=== PATIENT | male | born 1970 | race Hispanic/Latino ===

== ENCOUNTER 2017-07-17 18:51 | Emergency (ER) | payer MEDICAID ==
[2017-07-17 19:56] LABS: APPEARANCE,URINE Clear (CLEAR); BILIRUBIN,URINE Negative (NEGATIVE); COLOR,URINE Yellow (YELLOW); GLUCOSE, URINE (UA) >=1000 mg/dL (NEGATIVE); KETONES,URINE Negative (NEGATIVE); LEUKOCYTE ESTERASE ,URINE Negative (NEGATIVE); NITRATE,URINE Negative (NEGATIVE); OCCULT BLOOD,URINE Negative (NEGATIVE); PROTEIN,URINE Negative (NEGATIVE)
[2017-07-17 19:57] LABS: RAPID GROUP A STREP NEGATIVE (NEGATIVE)
[2017-07-17 20:26] LABS: AMORPHOUS SEDIMENT,UR Rare /LPF (None Seen); BACTERIA,URINE Rare /HPF (None Seen); RBC,URINE 0-1 /HPF (0-1); SQUAMOUS EPITHELIAL CELL,UR Rare /LPF (0-2); WBC,URINE 0-1 /HPF (0-1)
== END 2017-07-17 21:41 | disposition left against medical advice (07) ==
LOC: EDH 18:51
DX: J06.9 Acute upper respiratory infection, unspecified (principal); I10 Essential (primary) hypertension; E11.9 Type 2 diabetes mellitus without complications; F31.9 Bipolar disorder, unspecified; G47.30 Sleep apnea, unspecified; Z72.0 Tobacco use
CPT/HCPCS: 81001; 87804; 87880

== ENCOUNTER 2022-02-16 06:01 | Observation (INO) | payer MEDICAID ==
[~2022-02-16] VITALS: Ht 157.5 cm; Wt 119.3 kg
[2022-02-16] MEDS ORDERED: ACETAMINOPHEN 500 MG TABLET ONE (06:18)
[2022-02-16] MEDS ORDERED: ALBUTEROL 0.083% 2.5 MG/3 ML INH IH ONE (06:30)
[2022-02-16 06:49] LABS: BASOPHILS % (AUTO) 0.6 % (0.0-5.0); EOSINOPHILS % (AUTO) 0.3 % (0.0-8.0); HEMATOCRIT 48.2 % (42-54); LYMPHOCYTES % (AUTO) 7.3 % (21.0-51.0); MEAN CORPUSCULAR HEMOGLOBIN 33.5 pg (27.0-33.0); MEAN CORPUSCULAR HGB CONC 34.9 g/dL (32.0-36.0); MEAN CORPUSCULAR VOLUME 96.2 fL (79-99); MONOCYTES % (AUTO) 11.3 % (3.0-13.0); NEUTROPHILS % (AUTO) 78.6 % (40.0-77.0); PLATELET COUNT (AUTO) 161 K/uL (130-400); RED BLOOD CELL COUNT(AUTO) 5.01 MIL/uL (4.50-6.20); RED CELL DISTRIBUTION WIDTH 12.9 % (11.0-15.5)
[2022-02-16 07:09] LABS: ALBUMIN 3.4 g/dL (3.5-5.0); CREATININE 1.3 mg/dL (0.5-1.5); TOTAL PROTEIN, SERUM 7.7 g/dL (6.0-8.3)
[2022-02-16] MEDS ORDERED: AZITHROMYCIN 250 MG TABLET PO ONE (07:30)
[2022-02-16] MEDS ORDERED: CEFTRIAXONE 1G VIAL IVP ONE (07:30)
[2022-02-16] MEDS ORDERED: DEXAMETHASONE SOD PHOSPHATE 4 MG/ML 1ML VIAL IVP ONE (07:30)
[2022-02-16] MEDS ORDERED: ACETAMINOPHEN 325 MG TAB PO PRN (08:00)
[2022-02-16] MEDS ORDERED: ASPIRIN 325MG TAB PO SCH (08:00)
[2022-02-16] MEDS ORDERED: DIAZEPAM 2 MG TAB PO PRN (08:00)
[2022-02-16] MEDS ORDERED: CLONIDINE HCL 0.1 MG TABLET PO PRN (08:00)
[2022-02-16] MEDS ORDERED: TEMAZEPAM 15 MG CAPSULE PO PRN (08:00)
[2022-02-16] MEDS ORDERED: SOLU-MEDROL 125MG VIAL IVP ONE (08:00)
[2022-02-16] MEDS ORDERED: LACTULOSE 20 GM/30 ML UDCUP PO PRN (08:00)
[2022-02-16] MEDS: CHLORHEXIDINE GLUCONATE 473 ML MOUTHWASH MM SCH ×3 (08:00→20:50)
[2022-02-16] MEDS ORDERED: ACETAMINOPHEN 650 MG SUPPOSITORY RC PRN (08:00)
[2022-02-16] MEDS: ARTIFICAL TEARS SOL 15 ML OU SCH ×3 (08:00→20:50)
[2022-02-16] MEDS ORDERED: DOCUSATE SODIUM 100 MG CAP PO PRN (08:00)
[2022-02-16] MEDS ORDERED: ERGOCALCIFEROL (VITAMIN D2) 50,000 UNIT CAPSULE PO SCH (08:00)
[2022-02-16] MEDS: SOLU-MEDROL 125MG VIAL IVP SCH ×2 (08:00→17:32)
[2022-02-16] MEDS ORDERED: ONDANSETRON 4MG INJ IVP PRN (08:00)
[2022-02-16] MEDS ORDERED: ALBUTEROL INHALER 90MCG/INH IH PRN (08:00)
[2022-02-16] MEDS ORDERED: GUAIFENESIN-CODEINE 5 ML SYRUP PO PRN (08:00)
[2022-02-16 08:08] LABS: B-TYPE NATRIURETIC PEPTIDE 6 pg/mL (0-100)
[2022-02-16 08:15] LABS: ABG HCO3 23.4 mmol/L (21.0-28.0); ABG OXYGEN SATURATION 92.4 % (95.0-99.0); ABG PCO2 38 mmHg (35-48)
[2022-02-16] MEDS: ASPIRIN 81MG CHEW TAB PO SCH (09:00)
[2022-02-16] MEDS: LEVOFLOXACIN 500 MG/D5W 100 ML IV SCH (09:29)
[2022-02-16] MEDS: ACETYLCYSTEINE 600 MG CAPSULE PO SCH ×2 (09:46→21:19)
[2022-02-16] MEDS: ASCORBIC ACID 500 MG TAB PO SCH (09:46)
[2022-02-16] MEDS: PANTOPRAZOLE 40 MG TAB DR PO SCH (09:47)
[2022-02-16] MEDS: ZINC SULFATE 220 CAPSULE PO SCH (09:47)
[2022-02-16] MEDS: ENOXAPARIN SODIUM 40 MG/0.4 ML SYRINGE SQ SCH (09:47)
[2022-02-16] MEDS ORDERED: METF-527 PO (09:53)
[2022-02-16] MEDS ORDERED: SEMA1PEN3 SQ (09:53)
[2022-02-16] MEDS: LACTATED RINGERS 1000ML 1,000 ML IV SCH (10:02)
[2022-02-16] MEDS ORDERED: IPRATROPIUM 0.5 MG/2.5 ML INH IH ONE (10:58)
[2022-02-16] MEDS: IPRATROPIUM 0.5 MG/2.5 ML INH IH SCH ×2 (11:05→18:50)
[2022-02-16 12:34] LABS: APPEARANCE,URINE CLEAR (CLEAR); BILIRUBIN,URINE NEGATIVE (NEGATIVE); COLOR,URINE YELLOW (YELLOW); GLUCOSE, URINE (UA) 100 mg/dL (NEGATIVE); KETONES,URINE NEGATIVE (NEGATIVE); LEUKOCYTE ESTERASE ,URINE NEGATIVE (NEGATIVE); NITRATE,URINE NEGATIVE (NEGATIVE); OCCULT BLOOD,URINE NEGATIVE (NEGATIVE); PH,URINE 5.5 (5.0-8.0); PROTEIN,URINE NEGATIVE (NEGATIVE); UROBILINOGEN,URINE 0.2 mg/dL (0.2-1.0)
[2022-02-16 12:39] LABS: BACTERIA,URINE Rare /HPF (None Seen); RBC,URINE 0-1 /HPF (0-1); SQUAMOUS EPITHELIAL CELL,UR Rare /HPF (0-2); WBC,URINE 0-1 /HPF (0-1)
[2022-02-16] MEDS: INSULIN HUMULIN R 100 UNIT/ML 3ML SQ SCH ×3 (13:02→21:18)
[2022-02-16] MEDS ORDERED: PHARMACY COMMUNICATION MISC SCH (15:30)
[2022-02-16 16:17] VITALS: BP 114/78
[2022-02-16 20:47] VITALS: BP 110/68
[2022-02-16 23:56] VITALS: BP 129/76
[2022-02-17] MEDS: IPRATROPIUM 0.5 MG/2.5 ML INH IH SCH ×3 (00:17→11:18)
[2022-02-17] MEDS: SOLU-MEDROL 125MG VIAL IVP SCH ×2 (00:33→08:49)
[2022-02-17] MEDS: CHLORHEXIDINE GLUCONATE 473 ML MOUTHWASH MM SCH ×2 (02:00→08:00)
[2022-02-17] MEDS: ARTIFICAL TEARS SOL 15 ML OU SCH ×2 (02:00→08:00)
[2022-02-17 03:30] VITALS: BP 130/81
[2022-02-17] MEDS: LACTATED RINGERS 1000ML 1,000 ML IV SCH (04:05)
[2022-02-17 04:51] LABS: MEAN CORPUSCULAR HEMOGLOBIN 33.3 pg (27.0-33.0); MEAN CORPUSCULAR HGB CONC 34.2 g/dL (32.0-36.0); MEAN CORPUSCULAR VOLUME 97.2 fL (79-99); RED BLOOD CELL COUNT(AUTO) 4.63 MIL/uL (4.50-6.20); RED CELL DISTRIBUTION WIDTH 13.1 % (11.0-15.5); WHITE BLOOD COUNT (AUTO) 17.5 K/uL (4.8-10.8)
[2022-02-17 05:14] LABS: CREATININE 1.1 mg/dL (0.5-1.5); MAGNESIUM 2.1 mg/dL (1.80-2.40); PHOSPHORUS 3.8 mg/dL (2.5-4.9); POTASSIUM 4.4 mmol/L (3.5-5.1)
[2022-02-17] MEDS: INSULIN HUMULIN R 100 UNIT/ML 3ML SQ SCH ×2 (06:18→11:55)
[2022-02-17 06:57] VITALS: BP 108/79
[2022-02-17] MEDS: PANTOPRAZOLE 40 MG TAB DR PO SCH (08:50)
[2022-02-17] MEDS: ACETYLCYSTEINE 600 MG CAPSULE PO SCH (08:50)
[2022-02-17] MEDS: ZINC SULFATE 220 CAPSULE PO SCH (08:50)
[2022-02-17] MEDS: ASPIRIN 81MG CHEW TAB PO SCH (08:50)
[2022-02-17] MEDS: ASCORBIC ACID 500 MG TAB PO SCH (08:50)
[2022-02-17] MEDS: ENOXAPARIN SODIUM 40 MG/0.4 ML SYRINGE SQ SCH (08:51)
[2022-02-17] MEDS: LEVOFLOXACIN 500 MG/D5W 100 ML IV SCH (08:51)
[2022-02-17] MEDS ORDERED: DEXA6TAB7 PO (11:48)
[2022-02-17] MEDS ORDERED: LEVO-70 PO (11:48)
[2022-02-17] MEDS ORDERED: ALBU8.5H8 IH (11:50)
[2022-02-17 12:00] VITALS: BP 142/60
[2022-02-17] MEDS ORDERED: SOLU-MEDROL 125MG VIAL IVP SCH (16:00)
[2022-02-18] MEDS ORDERED: DEXAMETHASONE 4 MG TAB PO SCH (09:00)
== END 2022-02-17 14:55 | disposition home or self-care (01) ==
LOC: EDH 06:01 → INTOOBSV 06:02 → EDHIP 06:02 → UNDOADMIN 07:40 → 2AH 14:47 → EDHIP 14:47
PROVIDERS: ADMIT Internal Medicine; ATTEND Internal Medicine
DX: U07.1 COVID-19 (principal); J12.82 Pneumonia due to coronavirus disease 2019; I10 Essential (primary) hypertension; J44.1 Chronic obstructive pulmonary disease with (acute) exacerbation; E11.9 Type 2 diabetes mellitus without complications; E78.5 Hyperlipidemia, unspecified; E66.9 Obesity, unspecified; G47.33 Obstructive sleep apnea (adult) (pediatric); F41.9 Anxiety disorder, unspecified; M19.90 Unspecified osteoarthritis, unspecified site; R09.02 Hypoxemia; Z87.891 Personal history of nicotine dependence; Z79.899 Other long term (current) drug therapy; Z98.890 Other specified postprocedural states; Z79.4 Long term (current) use of insulin; Z79.82 Long term (current) use of aspirin; Z79.84 Long term (current) use of oral hypoglycemic drugs; Z68.42 Body mass index [BMI] 45.0-49.9, adult
CPT/HCPCS: 96376 ×2; 96372 ×2; 96361 ×2; 96365; 96375; 82550 ×3; 83874 ×3; 84484 ×4; 80053; 82803; 83880; 85025; 85378; 87071; 87205; 87804 ×2; 82948 ×5; 81001; 36415 ×2; 87635; 71045; 71250; 99291; 93005; 36600; 94640 ×6; 94660; 94664; 96366; 83615; 83735; 84100; 80048; 85027; 94760 ×2; 84145; G0378 ×29; C9803; J7120 ×2; J1956 ×2; J2930 ×4; J0696; J1650 ×2; J1100; J1815 ×5

== ENCOUNTER 2022-06-27 22:51 | Emergency (ER) | payer MEDICAID ==
[~2022-06-27] VITALS: Ht 157.5 cm; Wt 123.4 kg
[~2022-06-27 22:51] MED LIST: ALBU8.5H8 IH; DEXA6TAB7 PO; LEVO-70 PO; METF-527 PO; SEMA1PEN3 SQ
[2022-06-27] MEDS ORDERED: LIDOCAINE HCL-MPF 2% 5ML VIAL ONE ×2 (23:05→23:16)
[2022-06-27] MEDS ORDERED: AMOX1TAB16 PO (23:17)
[2022-06-27] MEDS ORDERED: IBUP-2070 PO (23:17)
[2022-06-27 23:27] VITALS: BP 129/89
[2022-06-27] MEDS ORDERED: KETOROLAC 30MG VIAL (30MG/ML) IM ONE (23:30)
== END 2022-06-27 23:25 | disposition home or self-care (01) ==
LOC: EDH 22:51
DX: K02.9 Dental caries, unspecified (principal); E11.9 Type 2 diabetes mellitus without complications; E78.00 Pure hypercholesterolemia, unspecified; G47.30 Sleep apnea, unspecified; I10 Essential (primary) hypertension; F17.200 Nicotine dependence, unspecified, uncomplicated; Z79.1 Long term (current) use of non-steroidal anti-inflammatories (NSAID); Z79.52 Long term (current) use of systemic steroids
CPT/HCPCS: 99283; J3490 ×2

== ENCOUNTER 2023-04-16 14:55 | Emergency (ER) | payer MEDICAID ==
[~2023-04-16] VITALS: Ht 157.5 cm; Wt 108.9 kg
[~2023-04-16 14:55] MED LIST changes: +AMOX1TAB16 PO; +IBUP-2070 PO
[2023-04-16 15:14] LABS: BASOPHILS % (AUTO) 0.9 % (0.0-5.0); EOSINOPHILS # (AUTO) 0.25 K/uL (0.00-0.70); EOSINOPHILS % (AUTO) 2.4 % (0.0-8.0); HEMATOCRIT 54.2 % (42-54); IMMATURE GRANULOCYTE ABSOLUTE 0.23 K/uL (0-1); LYMPHOCYTES # (AUTO) 2.2 K/uL (1.0-4.8); LYMPHOCYTES % (AUTO) 20.4 % (21.0-51.0); MEAN CORPUSCULAR HEMOGLOBIN 33.5 pg (27.0-33.0); MEAN CORPUSCULAR HGB CONC 33.8 g/dL (32.0-36.0); MEAN CORPUSCULAR VOLUME 99.3 fL (79-99); MONOCYTES # (AUTO) 0.7 K/uL (0.1-1.0); MONOCYTES % (AUTO) 6.8 % (3.0-13.0); NEUTROPHILS # (AUTO) 7.1 K/uL (1.8-7.7); NEUTROPHILS % (AUTO) 67.3 % (40.0-77.0); PLATELET COUNT (AUTO) 213 K/uL (130-400); RED BLOOD CELL COUNT(AUTO) 5.46 MIL/uL (4.50-6.20); RED CELL DISTRIBUTION WIDTH 12.9 % (11.0-15.5); WHITE BLOOD COUNT (AUTO) 10.6 K/uL (4.8-10.8)
[2023-04-16] MEDS ORDERED: 0.9%NACL 1000ML 1,000 ML IV ONE ×2 (15:30→17:30)
[2023-04-16] MEDS ORDERED: ASPIRIN 325MG TAB PO ONE (15:30)
[2023-04-16] MEDS ORDERED: NITROGLYCERIN 0.4 MG SL TAB SL PRN (15:30)
[2023-04-16 15:43] LABS: B-TYPE NATRIURETIC PEPTIDE < 5 pg/mL (0-100)
[2023-04-16 16:07] LABS: PROTHROMBIN TIME 11.6 SEC (9.6-11.6)
[2023-04-16 16:08] LABS: PARTIAL THROMBOPLASTIN TIME 29.3 SEC (26.3-35.5)
[2023-04-16 16:15] LABS: ALBUMIN 3.3 g/dL (3.5-5.0); BILIRUBIN,TOTAL 0.3 mg/dL (0.2-1.0); CREATININE 1.2 mg/dL (0.5-1.5); MAGNESIUM 1.8 mg/dL (1.80-2.40); TOTAL PROTEIN, SERUM 6.7 g/dL (6.0-8.3)
[2023-04-16 16:18] LABS: MAGNESIUM 1.8 mg/dL (1.80-2.40)
[2023-04-16] MEDS ORDERED: INSULIN HUMULIN R 100 UNIT/ML 3ML SQ ONE (17:30)
[2023-04-16 17:56] LABS: APPEARANCE,URINE CLEAR (CLEAR); BILIRUBIN,URINE NEGATIVE (NEGATIVE); COLOR,URINE LIGHT-YELLOW (YELLOW); GLUCOSE, URINE (UA) >=1000 mg/dL (NEGATIVE); KETONES,URINE NEGATIVE (NEGATIVE); LEUKOCYTE ESTERASE ,URINE NEGATIVE Leu/uL (NEGATIVE); NITRATE,URINE NEGATIVE (NEGATIVE); OCCULT BLOOD,URINE NEGATIVE (NEGATIVE); PROTEIN,URINE NEGATIVE (NEGATIVE); UROBILINOGEN,URINE 0.2 mg/dL (0.2-1.0)
[2023-04-16 18:04] LABS: ADD UA MICROSCOPIC YES
[2023-04-16 18:14] LABS: RBC,URINE 0-1 /HPF (0-1); WBC,URINE 0-1 /HPF (0-1)
[2023-04-16] MEDS ORDERED: METF-446 PO (18:57)
[2023-04-16 19:08] VITALS: BP 120/72; PULSE 83; RESP 14; O2SAT 99
== END 2023-04-16 19:25 | disposition home or self-care (01) ==
LOC: EDH 14:55
DX: I20.9 Angina pectoris, unspecified (principal); E11.65 Type 2 diabetes mellitus with hyperglycemia; R07.89 Other chest pain; I10 Essential (primary) hypertension; E78.00 Pure hypercholesterolemia, unspecified; F17.200 Nicotine dependence, unspecified, uncomplicated; J44.9 Chronic obstructive pulmonary disease, unspecified; Z79.84 Long term (current) use of oral hypoglycemic drugs; Z98.890 Other specified postprocedural states; Z79.899 Other long term (current) drug therapy
CPT/HCPCS: 99285; 96360; 71045; 96361; 80061; 82550; 83735 ×2; 83874; 84484; 80053; 85025; 85378; 85610; 85730; 82948 ×2; 81001; 36415; 93005; 96372; 83880 ×2; J1815; J7030